=== PATIENT | female | born 1995 | race African-American/Black ===

== ENCOUNTER 2019-01-03 00:35 | Emergency (ER) | payer MEDICAID | END 2019-01-03 02:01 | disposition home or self-care (01) | LOC: ERS 00:35 | DX: O9A.219 Injury, poisoning and certain other consequences of external causes complicating pregnancy, unspecified trimester (principal); S03.00XA Dislocation of jaw, unspecified side, initial encounter | CPT/HCPCS: 99283 ==

== ENCOUNTER 2019-03-20 11:03 | Outpatient (CLI) | payer OTHER ==
--- NOTE | 2019-03-20 11:46 | ULT ---
Obstetric sonogram HISTORY: evaluation. Second trimester gestation. FINDINGS: Single intrauterine gestation in cephalic presentation. Cervix is closed and 3.3 cm. Amniot ic fluid is within normal limits. Grade 0 placenta is posterior. Four-chamber heart shows motion at 139 bpm. spine and kidneys are intact as visualized. Three-vessel cord shows a normal insertion . No gross intracranial abnormalities. Measurements are as follows: Biparietal diameter 21 weeks 3 days. Head circumference 20 weeks 4 days. Abdominal circumference 20 weeks 5 days. Femur length 21 weeks 1 day. Hadlock 36 percentile. Estimated date of delivery based on today's sonogram 07/31/2019. IMPRESSION: Single viable intrauterine gestation. Estimated gestational age based on today's sonogram 21 weeks 0 days.
== END 2019-03-20 11:04 | disposition home or self-care (01) ==
LOC: BICULT 11:03
PROVIDERS: ATTEND Family Medicine
DX: O09.892 Supervision of other high risk pregnancies, second trimester (principal); Z3A.21 21 weeks gestation of pregnancy
CPT/HCPCS: 76805

== ENCOUNTER 2019-07-25 10:35 | Inpatient (IN) | payer OTHER ==
[2019-07-25] MEDS ORDERED: Lactated Ringer's 1,000 ML IV SCH (10:44)
[2019-07-25] MEDS ORDERED: Promethazine HCl 25 MG/ML VIAL IM PRN ×3 (10:44→13:38)
[2019-07-25] MEDS ORDERED: Ondansetron PF 4 MG/2 ML Vial IVP PRN ×3 (10:44→14:19)
[2019-07-25] MEDS ORDERED: hydrALAZINE 20 MG/ML VIAL SLOW IVP PRN ×2 (10:44→14:19)
[2019-07-25 10:59] VITALS: BMI 36.1
[2019-07-25] MEDS ORDERED: CEFAZOLIN 2 GM in Premix Bag 1 BAG IVPB SCH (11:15)
[2019-07-25] MEDS ORDERED: Bicitra 30 ML UDCUP PO SCH (11:15)
[2019-07-25] MEDS ORDERED: Promethazine HCl 25 MG SUPP PR PRN (11:17)
[2019-07-25] MEDS ORDERED: Ondansetron HCl/PF 4 MG/2 ML Vial IVP PRN ×2 (11:17→13:38)
[2019-07-25] MEDS ORDERED: Meperidine HCl/PF 25 MG/ML VIAL SLOW IVP PRN (11:17)
[2019-07-25] MEDS ORDERED: diphenhydrAMINE 50 MG/ML VIAL IVP PRN (11:17)
[2019-07-25] MEDS ORDERED: HYDROmorphone 2 MG/ML VIAL SLOW IVP PRN (11:17)
[2019-07-25] MEDS ORDERED: Naloxone HCl 0.4 mg/ml Vial IVP PRN ×2 (11:17)
[2019-07-25] MEDS ORDERED: L&D-Morphine 4 MG/ML VIAL SLOW IVP PRN (11:17)
[2019-07-25] MEDS ORDERED: Naloxone HCl 0.4 mg/ml Vial IV PRN (11:17)
[2019-07-25] MEDS ORDERED: Ketorolac Tromethamine 30 MG/ML VIAL IVP PRN (11:17)
[2019-07-25 11:21] LABS: Hemoglobin 10.3 g/dL (12.0-16.0); Mean Corpuscular HGB CONC 32.1 g/dL (32.0-36.0); Mean Corpuscular Hemoglobin 27.6 pg (27.0-31.0); Mean Corpuscular Volume 86.1 fL (78.0-98.0); Mean Platelet Volume 7.8 fL (7.4-10.4); Platelet Count 274 thou/uL (130-400); RBC Distribution Width 11.1 % (11.5-14.5); Red Blood Cell (RBC) Count 3.72 mill/uL (4.20-5.40); White Blood Cell (WBC) Count 3.4 thou/uL (4.8-10.8)
[2019-07-25] MEDS ORDERED: MORPHINE 5 MG/10 ML PF VIAL ONE (11:23)
[2019-07-25] MEDS ORDERED: PHENYLEPHRINE-NS 100 MCG/ML 10 ML SYRINGE ONE (11:23)
[2019-07-25] MEDS ORDERED: Oxytocin 10 UNITS/ML VIAL ONE (11:23)
[2019-07-25] MEDS ORDERED: Communication Order-Pharmacy FS SCH (11:30)
[2019-07-25] MEDS ORDERED: Ketorolac Tromethamine 30 MG/ML VIAL IVP SCH (11:30)
[2019-07-25 11:39] LABS: HBSAg Index 0.24 S/CO (0-0.99); Hep B Surf Ag Non-Reactive S/CO (NonReactive); Syphilis Antibody Nonreactive (Nonreactive); Syphilis Antibody Index 0.07 S/CO (<1.00 Non-Reactive)
[2019-07-25] MEDS ORDERED: Ketorolac Tromethamine 30 MG/ML VIAL ONE (12:43)
[2019-07-25] MEDS ORDERED: Ondansetron PF 4 MG/2 ML Vial ONE (12:45)
[2019-07-25] MEDS ORDERED: Metoclopramide HCl 10 MG/2 ML VIAL ONE (12:52)
[2019-07-25] MEDS ORDERED: Fentanyl 4 mcg/Bup 0.1% Cadd 0 ML ONE (12:55)
[2019-07-25] MEDS ORDERED: Fentanyl 100 MCG/2 ML VIAL ONE (13:10)
[2019-07-25] MEDS ORDERED: Promethazine HCl 25 MG/ML VIAL SLOW IVP PRN (13:38)
[2019-07-25] MEDS ORDERED: Adacel (T-DAP) 0.5 ML SYRINGE IM ONE (14:19)
[2019-07-25] MEDS ORDERED: NS / Oxytocin 40 units/1000ml 1,000 ML IV SCH (14:19)
[2019-07-25] MEDS ORDERED: Lanolin Ointment 7 GM TUBE TOP PRN (14:19)
[2019-07-25] MEDS ORDERED: Bisacodyl 10 MG SUPP PR PRN (14:19)
[2019-07-25] MEDS: Ketorolac Tromethamine 30 MG/ML VIAL IVP SCH ×2 (17:12→23:29)
[2019-07-25] MEDS ORDERED: Hydrocerin (Eucerin) Cream 120 gm Jar TOP PRN (20:22)
[2019-07-25] MEDS: Docusate Calcium (SURFAK) 240 MG CAP PO SCH (20:59)
[2019-07-25] MEDS: diphenhydrAMINE 25 MG CAP PO PRN (21:04)
[2019-07-25] MEDS ORDERED: HYDROcodone/Acetaminophen 5/325 mg Tablet PO PRN (23:30)
[2019-07-25] MEDS ORDERED: Meperidine HCl/PF 25 MG/ML VIAL IM PRN (23:30)
[2019-07-25] MEDS ORDERED: Sodium Chloride 0.9% 0 ML ONE (23:34)
[2019-07-26] MEDS: Ferrous Sulfate 325 MG TAB PO SCH ×3 (03:07→21:01)
[2019-07-26] MEDS: HYDROcodone/Acetaminophen 5/325 mg Tablet PO PRN ×4 (05:36→23:50)
[2019-07-26] MEDS: diphenhydrAMINE 25 MG CAP PO PRN ×3 (05:36→16:58)
[2019-07-26] MEDS: Ketorolac Tromethamine 30 MG/ML VIAL IVP SCH (05:45)
[2019-07-26 05:52] LABS: Hemoglobin 9.5 g/dL (12.0-16.0); Mean Corpuscular HGB CONC 34.8 g/dL (32.0-36.0); Mean Corpuscular Hemoglobin 30.5 pg (27.0-31.0); Mean Corpuscular Volume 87.6 fL (78.0-98.0); Mean Platelet Volume 7.6 fL (7.4-10.4); Platelet Count 216 thou/uL (130-400); RBC Distribution Width 11.1 % (11.5-14.5); White Blood Cell (WBC) Count 8.8 thou/uL (4.8-10.8)
--- NOTE | 2019-07-26 07:53 | DN ---
DATE OF PROCEDURE: 07/25/2019 SCOW DERRICK OPERATOR: Edmund Gonsales MD, PGY-3. PROCEDURE PERFORMED: Repeat low transverse section. PREOPERATIVE DIAGNOSES: 1. Term intrauterine . 2. Previous section. POSTOPERATIVE DIAGNOSES: 1. Term intrauterine . 2. Previous section. ANESTHESIA: Spinal. INDICATIONS: This patient is a 23-year-old, G2, P1 female at 39 and 1 weeks, who presents for repeat scheduled . DESCRIPTION OF PROCEDURE: After risks, benefits, and alternatives were explained to the patient, she gave informed consent. Preoperative antibiotics included cefazolin 3 g IV. The patient was taken to the operating room and spinal anesthesia was initiated. She was placed in the supine position with the left tilt and prepped and draped in the usual sterile fashion. A Pfannenstiel incision was made with a scalpel and carried down to the level of the fascia, which was sharply nicked. Fascial cut was extended bilaterally with Ponce scissors. Inferior and superior edges of the fascial cut edges were elevated with Micah clamps and the underlying rectus muscles were sharply and bluntly dissected free. Recti were divided digitally and retracted manually. The peritoneum was entered bluntly and retracted manually. Bladder blade was placed. A low transverse score was made with a scalpel and the uterus was entered in the midline with the scalpel. Clear fluid was seen. The hysterotomy was extended manually. was noted to be vertex and was easily delivered by fundal pressure. Mouth and nares were bulb suctioned. Cord clamped and cut and grossly normal male infant was handed to the waiting nurse. Cord blood was obtained. Placenta was manually extracted, found to be intact with 3-vessel cord and discarded. Uterus was externalized and the endometrium was curetted with dry lap. The uterus was then closed with a running locking 0 Vicryl suture. Following this, hemostasis was noted. Abdomen was irrigated with saline, suctioned free of clots. Uterus was internalized and hysterotomy was again noted to be hemostatic. The fascia was then closed with a running nonlocking 0 PDS suture and subcu tissue was irrigated and there were no bleeders. Subcu layer was then brought together with three interrupted 3-0 chromic and 3-0 Vicryl sutures. Skin was approximated with adeline and a pressure dressing was placed. All counts were correct. The patient tolerated the procedure well and she was taken to the recovery room in stable condition. QUANTITATIVE BLOOD LOSS: 598. COMPLICATIONS: None. SPECIMENS: Cord blood sent to lab for blood type. FINDINGS: Grossly normal male infant with Apgars of 9 and 9. Grossly normal placenta with 3-vessel cord, discarded. DRAINS: [place] to gravity, draining clear urine. Job ID: [id number]
[2019-07-26] MEDS: Prenatal Vitamin 1 TAB PO SCH (08:25)
[2019-07-26] MEDS: Docusate Calcium (SURFAK) 240 MG CAP PO SCH ×2 (08:25→21:01)
[2019-07-26] MEDS ORDERED: Sodium Chloride 0.9% 10 ML ONE (11:29)
[2019-07-26] MEDS: Ibuprofen 800 MG TAB PO SCH ×3 (12:53→21:01)
[2019-07-26] MEDS: Simethicone Chewable 80 MG TAB PO PRN (16:59)
[2019-07-27] MEDS: Simethicone Chewable 80 MG TAB PO PRN ×4 (00:20→16:17)
[2019-07-27] MEDS: Ibuprofen 800 MG TAB PO SCH ×2 (05:23→13:27)
[2019-07-27] MEDS: Prenatal Vitamin 1 TAB PO SCH (08:34)
[2019-07-27] MEDS: Docusate Calcium (SURFAK) 240 MG CAP PO SCH (08:34)
[2019-07-27] MEDS: Ferrous Sulfate 325 MG TAB PO SCH (08:34)
[2019-07-27] MEDS: HYDROcodone/Acetaminophen 5/325 mg Tablet PO PRN ×2 (08:41→16:17)
[2019-07-27 12:23] VITALS: BP 122/61; TEMP 97.6
== END 2019-07-27 17:59 | disposition home or self-care (01) | DRG 788 ==
LOC: L&D 10:35 → 3SW 14:50
PROVIDERS: ADMIT Family Medicine; ATTEND Family Medicine
PROC: 10D00Z1 Extraction of Products of Conception, Low, Open Approach (ICD-10-PCS; principal; 2019-07-25)
DX: O34.211 Maternal care for low transverse scar from previous cesarean delivery (principal); Z3A.39 39 weeks gestation of pregnancy; Z37.0 Single live birth
CPT/HCPCS: 36415; 51702; 85027; 86780; 86850; 86900; 86901; 87340; J0690; J1200; J1885; J2274; J2310; J2405; J2590; J2765; J3010; Q0163